=== PATIENT | female | born 1940 | race Caucasian/White ===

== ENCOUNTER → 2016-05-24 | Outpatient (CLI) | payer BC ==
[~2016-05-24] MED LIST: ACET-749 PO; FSMD/70 PO; HYDC25 PO; HYDR25TA4 PO; METO25TA3 PO; NAPR250T2 PO; PRLSR20 PO; SULF800T23 PO
[2016-05-24 12:43] LABS: BLOOD UREA NITROGEN 17 mg/dl (7-18); BUN/CREATININE RATIO 17.3 (10-20); CALCIUM 9.2 mg/dl (8.5-10.1); CARBON DIOXIDE 28 mmol/L (21-32); CHLORIDE 97 mmol/L (98-107); CHOLESTEROL 200 mg/dl (0-200); CREATININE 0.98 mg/dl (0.60-1.20); GLUCOSE 87 mg/dl (70-99); POTASSIUM 3.7 mmol/L (3.5-5.1); SODIUM 135 mmol/L (136-145)
[2016-05-24 12:47] LABS: CHOLESTEROL/HDL RATIO 1.9; HDL CHOLESTEROL 105 mg/dl; LDL CHOLESTEROL CALCULATED 83 mg/dl; TRIGLYCERIDES 61 mg/dl (0-150); VERY LOW DENSITY LIPOPROT CALC 12 mg/dl
--- NOTE | 2016-05-28 14:09 | CODING QUERY MEDICAL NECESSITY ---
SUPPORTING DIAGNOSIS NEEDED A supporting diagnosis is required for the test/procedure performed on this patient in order for us to be reimbursed by the patient's insurance. Please provide a supporting diagnosis for the following test/procedure listed below next to the test name along with your signature. *If there is no additional diagnosis for this patient that would support the following test/procedure please document that below next to the test/procedure. Test(s)/Procedure(s) that require a supporting diagnosis: * VITAMIN D 25-HYDROXY DIAGNOSIS: * DOS: 05/24/16 Provider Signature: Date: Thank you Kelsey Wei Health Information Management Once completed, please kindly fax back to [phone] For questions please call [phone]
== END | disposition home or self-care (01) ==
LOC: C.LABPVFM 07:34
PROVIDERS: ATTEND Nurse Practitioner
DX: M85.80 Other specified disorders of bone density and structure, unspecified site (principal); E78.5 Hyperlipidemia, unspecified; I10 Essential (primary) hypertension

== ENCOUNTER → 2016-07-01 | Outpatient (CLI) | payer BC | END | disposition home or self-care (01) | LOC: C.LABPVFM 09:30 | PROVIDERS: ATTEND Family Medicine | DX: R31.9 Hematuria, unspecified (principal) ==

== ENCOUNTER → 2016-07-15 | Outpatient (CLI) | payer BC ==
[2016-07-15 17:18] LABS: URINE APPEARANCE CLEAR (CLEAR); URINE BILIRUBIN NEG (NEG); URINE COLOR YELLOW; URINE EPITHELIAL CELL AUTO 0-5 /lpf (0-5); URINE NITRITE NEG (NEG); URINE PH 5.5 (4.5-7.5); UROBILINOGEN NEG (NEG); ZZUR CULT IF INDIC CLEAN CATCH NO
[2016-07-15 17:35] LABS: MANUAL MICROSCOPIC REQUIRED? NO; REVIEW REQ? NO
== END | disposition home or self-care (01) ==
LOC: C.LABPVFM 17:57
PROVIDERS: ATTEND Family Medicine
DX: R31.0 Gross hematuria (principal); N39.0 Urinary tract infection, site not specified

== ENCOUNTER 2016-09-23 17:34 | Emergency (ER) | payer BC ==
[~2016-09-23] VITALS: Ht 157.5 cm; Wt 58.0 kg
[~2016-09-23 17:34] MED LIST changes: -HYDR25TA4 PO; +NAPR1TAB48 PO; -NAPR250T2 PO; -PRLSR20 PO
[2016-09-23 17:43] VITALS: BP 182/87; PULSE 96; TEMP 37; O2SAT 100; Ht 157.5 cm; Wt 58.0 kg
[2016-09-23] MEDS ORDERED: PRLSR20 PO (18:14)
[2016-09-23] MEDS ORDERED: HYDR25TA4 PO (18:14)
[2016-09-23] MEDS ORDERED: NAPR1TAB48 PO (18:14)
--- NOTE | 2016-09-23 18:35 | DIAGNOSTIC IMAGING REPORT ---
RIGHT FINGER(S) MIN 2 VIEWS ROUTINE CLINICAL HISTORY: R 3rd finger injury Right trauma. Pain. COMPARISON: None. DISCUSSION: The right third finger is held in flexion at the level of the proximal interphalangeal joint. There is a potential subluxation at the joint. Small avulsion from the base of the proximal phalanx is considered old. Moderate degenerative change distal interphalangeal joint. There is no evidence for soft tissue swelling. IMPRESSION: The right third finger is held in flexion at the proximal interphalangeal joint. Mild localized soft tissue edema. Potential partial subluxation Electronically signed by: Christophe Seo M.D. 09/23/2016 6:33 PM Dictated Date/Time: 09/23/2016 6:32 PM
[2016-09-23] MEDS ORDERED: XYLOCAINE 1%/SOD BICARB 20 ML VIAL INFIL ONE (19:00)
--- NOTE | 2016-09-23 19:39 | EMERGENCY ROOM VISIT NOTE ---
ED Visit Note First contact with patient: 18:05 I have personally seen and evaluated the patient with the physician housing assistant. I agree with the diagnostic/management decisions and have personally been involved in these decisions and agree with the diagnosis.
--- NOTE | 2016-09-23 19:52 | EMERGENCY ROOM VISIT NOTE ---
History First contact with patient: 18:05 Chief Complaint: FINGER PAIN Stated Complaint: CANT STRAIGHTEN FINGERS IN R HAND History of Present Illness The patient is a 76 year old female who presents to the Emergency Room with complaints of a flexed right third finger that she cannot straighten. The patient reports that she was pulling weeds today and it locked. The patient reports that she has had similar episodes in the past, but has always been able to straighten her finger. The patient is [id number]. She denies any pain extending into the hand or wrist. She denies any paresthesias or numbness of the right third finger. She denies any pain. 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 (6) Osteoporosis Nos (7) Parox Atrial Tachycardia Surgical Problems: (1) Hip Joint Replacement Status Family History FH: cancer FH: hypertension FH: kidney disease Social History Smoking Status: Never Smoker Alcohol Use: none Marital Status: Occupation Status: retired Current/Historical Medications Scheduled Hydrochlorothiazide (Hctz), 12.5 MG PO DAILY Metoprolol Succ (Toprol Xl) (Toprol-Xl), 12.5 MG PO BID Naproxen (Naprosyn), 125 MG PO QPM Naproxen (Naprosyn), 250 MG PO QAM Omeprazole (Prilosec), 20 MG PO DAILY Allergies Coded Allergies: Indomethacin (Unverified Adverse Reaction, Intermediate, VOMITING HEADACHE , 09/23/16) Physical Exam Vital Signs Date Time Temp Pulse Resp B/P (MAP) Pulse Ox O2 Delivery O2 Flow Rate FiO2 09/23/16 17:43 37.0 96 18 182/87 100 Room Air Physical Exam CONSTITUTIONAL: Healthy and well nourished. Alert and oriented X 3 with positive affect. Patient does not appear in any acute distress. HEENT: Normocephalic, atraumatic. Pupils equal, round and reactive. NECK: Full active range of motion without discomfort. MUSCULOSKELETAL: Examination of the right hand shows a flexed deformity at the PIP joint. She has minimal focal tenderness over the A1 lauren. She has no significant tenderness over the collateral ligaments of the PIP joint. Capillary refill is less than 2 seconds. INTEGUMENTARY: No rash or other significant dermatologic conditions noted. NEUROLOGIC: No focal neurologic deficits noted. Right third fingertip is sensory intact. Medical Decision & Procedures ER Provider Diagnostic Interpretation: My interpretation of right third finger x-rays shows a flexion deformity at the PIP joint with possible partial subluxation. She also has an old avulsion fracture at the base of the proximal phalanx. No other fractures appreciated. Radiologist report is as follows: RIGHT FINGER(S) MIN 2 VIEWS ROUTINE CLINICAL HISTORY: R 3rd finger injury Right trauma. Pain. COMPARISON: None. DISCUSSION: The right third finger is held in flexion at the level of the proximal interphalangeal joint. There is a potential subluxation at the joint. Small avulsion from the base of the proximal phalanx is considered old. Moderate degenerative change distal interphalangeal joint. There is no evidence for soft tissue swelling. IMPRESSION: The right third finger is held in flexion at the proximal interphalangeal joint. Mild localized soft tissue edema. Potential partial subluxation Procedure PIP joint reduction/finger extension was performed under digital block anesthesia after receiving verbal consent from the patient. Digital block anesthesia was administered by our physician assistant art director student under my direct supervision. Using buffered 1% lidocaine without epinephrine, good digital block anesthesia was administered. After allowing adequate time for sedation, I initially attempted to extend the finger at the MCP joint with no obvious release at the A1 lauren. Then with gentle manipulation, the PIP joint was able to be extended. The palpable mass at the A1 lauren had resolved, and noticeable movement of the tendon was noted with extension of the PIP joint, therefore I suspect that this was a trigger finger. Passive range of motion of finger was intact. With the patient performing flexion and extension activities , she did have occasional catching. Collateral ligaments were also intact. A metal splint and erma taping were applied. ED Course Patient history and physical exam were performed. Nurse's notes were reviewed. The patient refused any analgesics. X-rays of the finger shows a flexion deformity of the PIP joint with possible partial subluxation. Reduction was performed under digital block anesthesia. The patient was encouraged to intermittently apply ice to the finger. A metal splint and erma taping were applied, and the patient was encouraged to follow-up with Dr. Flynn for further reevaluation and management. Tylenol as needed for any discomfort. The patient was happy with plan of care, and voiced understanding of all discharge instructions. The patient was also seen and examined by Dr. Mary, ED attending physician, who agrees with workup and plan of care. Medical Decision Impression Primary Impression: Trigger finger, right middle finger Departure Information Referrals Geovanna Hayes, [email or web address] (PCP) Patient Instructions [facility]
== END 2016-09-23 19:56 | disposition home or self-care (01) ==
LOC: C.EDB 17:36 → C.EDD 19:56
DX: M65.331 Trigger finger, right middle finger (principal); I12.9 Hypertensive chronic kidney disease with stage 1 through stage 4 chronic kidney disease, or unspecified chronic kidney disease; N18.3 Chronic kidney disease, stage 3 (moderate); E78.5 Hyperlipidemia, unspecified; M81.0 Age-related osteoporosis without current pathological fracture; Z96.649 Presence of unspecified artificial hip joint; Z80.9 Family history of malignant neoplasm, unspecified; Z82.49 Family history of ischemic heart disease and other diseases of the circulatory system; Z84.1 Family history of disorders of kidney and ureter; Z79.899 Other long term (current) drug therapy

== ENCOUNTER → 2017-05-22 | Outpatient (CLI) | payer BC ==
[~2017-05-22] MED LIST changes: -ACET-749 PO; -FSMD/70 PO; -HYDC25 PO; +HYDR25TA4 PO; +PRLSR20 PO; -SULF800T23 PO
[2017-05-22 13:34] LABS: BLOOD UREA NITROGEN 22 mg/dl (7-18); CALCIUM 9.4 mg/dl (8.5-10.1); CARBON DIOXIDE 27 mmol/L (21-32); CHOLESTEROL 225 mg/dl (0-200); CREATININE 0.99 mg/dl (0.60-1.20); GLUCOSE 92 mg/dl (70-99); POTASSIUM 3.9 mmol/L (3.5-5.1); SODIUM 133 mmol/L (136-145)
[2017-05-22 13:38] LABS: LDL CHOLESTEROL CALCULATED 118 mg/dl
== END | disposition home or self-care (01) ==
LOC: C.LABPVFM 08:26
PROVIDERS: ATTEND Nurse Practitioner
DX: I10 Essential (primary) hypertension (principal); E78.5 Hyperlipidemia, unspecified

== ENCOUNTER → 2017-11-06 | Outpatient (CLI) | payer BC ==
[2017-11-06 17:38] LABS: TRANSFERRIN 272 mg/dl (200-360)
== END | disposition home or self-care (01) ==
LOC: C.LABPVFM 14:17
PROVIDERS: ATTEND Nurse Practitioner Family
DX: D64.9 Anemia, unspecified (principal)

== ENCOUNTER 2023-12-29 12:30 | Inpatient (IN) ==
--- NOTE | 2023-12-29 13:05 | Emergency Department Note ---
History of Present Illness General Chief complaint: Hip Pain Stated complaint: R hip pain x 1 week Time Seen by Provider: 12/29/23 13:03 History of Present Illness This is an 83-year-old female that presents to the emergency department via EMS with complaints of "right groin/hip pain". The patient notes that she has been experiencing right hip pain for the past week that seemed to acutely worsened over the past few days. It is worse with ambulation/weightbearing to the right lower extremity and essentially 0 at rest. She does note recent UTI and is concerned that the UTI persists despite oral antibiotics in the outpatient setting. She denies any fevers, chills, nausea or vomiting. No abdominal pain. Patient notes that when she bears weight the pain in the right hip is in the right groin area and points to the inguinal crease, medial aspect. The patient denies any new back pain, but does state that she has had some mild back pain for quite some time. Patient denies any lower extremity weakness, bowel or bladder incontinence, numbness or tingling in genital region. Patient does note intermittent discomfort with urination. Home Medications Medication Instructions Recorded Confirmed Type calcium carbonate 600 mg-vitamin 1 tab PO BID 04/27/19 12/29/23 History D3 10 mcg (400 unit) tablet (Calcium 600 + D(3)) [id number]-kbwruudty-pfg C-Mn 500 3 cap PO BID 04/27/19 12/29/23 History mg-400 mg capsule (Glucosamine-Chondroitin Max St) stbnbjle-myx-tamnu acid 0.4 1 tab PO DAILY 04/27/19 12/29/23 History mg-lycopene 300 mcg-lutein 250 mcg tablet (Centrum Silver) cholecalciferol (vitamin D3) 25 25 mcg PO DAILY #30 caps 10/29/19 12/29/23 Rx mcg (1,000 unit) capsule gabapentin 300 mg capsule 300 mg PO BID #200 caps 06/26/23 12/29/23 Rx hydrochlorothiazide 25 mg tablet 12.5 mg (1/2 x 25 mg) PO QAM #60 09/23/23 12/29/23 Rx tabs metoprolol tartrate 25 mg tablet 12.5 mg (1/2 x 25 mg) PO BID #100 09/23/23 12/29/23 Rx tabs valsartan 160 mg tablet 160 mg PO DAILY #100 tabs 10/20/23 12/29/23 Rx Allergies Allergy/AdvReac Type Severity Reaction Status Date / Time indomethacin AdvReac Intermediate VOMITING Verified 12/29/23 16:52 HEADACHE Past Med/Surg History Problem List (Updated 12/30/23 @ 00:13 by Adonis Reno PA-C) Right groin pain (Acute) Hypercalcemia (Acute) UTI (urinary tract infection) Urinary symptom or sign Acute right hip pain Right leg weakness Bilateral leg pain Severe low back pain Low back pain Chronic kidney disease, stage III (moderate) (Chronic) Spinal stenosis of lumbar region (Acute) Carpal tunnel syndrome, right (Acute) Anemia (Chronic) Hyperlipidemia, unspecified (Chronic) pt elected to stop statin due to age Hypertension (Chronic) Osteoporosis, unspecified (Chronic) Paroxysmal atrial tachycardia (Acute) Medical History FH: bilateral hip replacements Blurred vision Acute chest wall pain Diverticulosis of colon Surgical History Hip joint replacement status Family History Mother Coronary heart disease Cardiac disorder Hypertension Kidney stones Osteoarthritis Myocardial infarction Father Coronary heart disease Hypertension Myocardial infarction Sister Cancer Liver cancer Brother Cancer Pancreatic cancer Aunt Breast cancer Denies family history of Ovarian cancer Prostate cancer Colorectal cancer Social History Smoking Status: Never smoker Hx Alcohol Use: No Hx Substance Use: No Preferred Language: Indonesian Communication Ability: Effective Data Recovery Planner Required: No Beliefs That Will Affect Care: None marital status: / Current Living Situation: Alone current occupational status: retired Other Information That Helps Us Care for You: No Feels Safe at Home: Yes Safety Concerns: Feels Safe At This Time caffeine: No Dental Care, Regularly: Yes Physical Activity Frequency: Does not Exercise Seatbelt Use: always Sunscreen Use: No Assistive Devices: Denture - Upper, Denture - Lower, Glasses and Walker Review of Systems A total of 10 systems reviewed and were otherwise negative Physical Exam Vital Signs Vital Signs - 24 hr 12/29/23 12:55 12/29/23 14:50 12/29/23 15:08 Temperature 37.1 C Temperature Source Oral Pulse Rate 78 76 Pulse Rate [Apical] 77 Pulse Rate from SpO2 Sensor Respiratory Rate 14 12 Blood Pressure 185/95 H Blood Pressure [Right Arm] 178/85 H Blood Pressure Mean 125 Blood Pressure Mean [Right Arm] 116 Pulse Oximetry 98 95 Oxygen Delivery Method Room Air Room Air Sepsis Recent Fever Within 48 Hours No Sepsis New/Unexplained Change in Mental Status N/A Sepsis Action Taken by Nursing No Action Required 12/29/23 15:30 12/29/23 15:30 12/29/23 15:57 Temperature Temperature Source Pulse Rate 76 79 Pulse Rate [Apical] Pulse Rate from SpO2 Sensor 76 79 Respiratory Rate 16 20 Blood Pressure 159/81 H Blood Pressure [Right Arm] Blood Pressure Mean 133 Blood Pressure Mean [Right Arm] Pulse Oximetry 99 98 Oxygen Delivery Method Room Air Room Air Sepsis Recent Fever Within 48 Hours Sepsis New/Unexplained Change in Mental Status Sepsis Action Taken by Nursing 12/29/23 16:00 12/29/23 16:06 12/29/23 16:42 Temperature Temperature Source Pulse Rate 78 84 Pulse Rate [Apical] Pulse Rate from SpO2 Sensor 79 84 Respiratory Rate 16 21 Blood Pressure 185/82 H Blood Pressure [Right Arm] Blood Pressure Mean 113 Blood Pressure Mean [Right Arm] Pulse Oximetry 99 98 Oxygen Delivery Method Room Air Room Air Sepsis Recent Fever Within 48 Hours Sepsis New/Unexplained Change in Mental Status Sepsis Action Taken by Nursing 12/29/23 17:32 Temperature Temperature Source Pulse Rate 83 Pulse Rate [Apical] Pulse Rate from SpO2 Sensor Respiratory Rate 29 H Blood Pressure 154/91 H Blood Pressure [Right Arm] Blood Pressure Mean 112 Blood Pressure Mean [Right Arm] Pulse Oximetry 94 Oxygen Delivery Method Room Air Sepsis Recent Fever Within 48 Hours Sepsis New/Unexplained Change in Mental Status Sepsis Action Taken by Nursing VITAL SIGNS - Vital signs and nursing notes were reviewed. Hypertensive on arrival, otherwise stable and afebrile. GENERAL -83-year-old female appearing her stated age who is in no acute distress. Communicates well with provider and answers questions appropriately. SKIN - Without rashes. No meningeal or petechial rash. No herpetic lesions HEAD - NC/AT. EYES - Sclera anicteric. MOUTH/OROPHARYNX - Without perioral cyanosis. B NECK - No nuchal rigidity. LUNGS - CTA CARDIAC - RRR ABDOMEN - Abdominal contour normal without pulsations or visible masses. BS normoactive all four quadrants. No tenderness, palpable masses, hepatosplenomegaly, or ascites noted. EXTREMITIES - No clubbing or peripheral cyanosis. The lower extremities are appropriately warm and well-perfused. No evidence of compartment syndrome. There is no lower extremity edema. There is no reproducible tenderness overlying the right hip area. Right greater trochanter region nontender. L- spine nontender. Right inguinal crease without palpable lymphadenopathy. No palpable cord. +5/5 strength noted in UE/LE bilaterally. NEUROLOGIC -sensory intact to light touch throughout the right lower extremity without deficit. PSYCH -alert, oriented and pleasant on exam. Course Administered Medications Gabapentin (Gabapentin 300 Mg Cap) 300 mg PO BID MARQUES Stop: 01/28/24 21:13 Last Admin: 12/29/23 23:01 Dose: 300 mg Documented By: ANABEL Metoprolol Tartrate (Metoprolol Tartrate 25 Mg Tab) 12.5 mg PO BID MARQUES Stop: 01/28/24 21:13 Last Admin: 12/29/23 23:01 Dose: 12.5 mg Documented By: ANABEL Discontinued Medications Sodium Chloride (Nss) 1,000 mls @ 999 mls/hr IV .Q1H1M MARQUES Stop: 12/29/23 16:15 Last Infusion: 12/29/23 18:11 Dose: Infused Documented By: Admin: 12/29/23 15:18 Dose: 999 mls/hr Documented By: VICK Ceftriaxone Sodium (Rocephin) 1,000 mg in 50 mls @ 100 mls/hr IV NOW STA Stop: 12/29/23 18:07 Last Infusion: 12/29/23 18:37 Dose: Infused Documented By: Admin: 12/29/23 18:07 Dose: 100 mls/hr Documented By: KARYN Sodium Chloride (Nss) 1,000 mls @ 999 mls/hr IV .Q1H1M ONE Stop: 12/29/23 19:36 Last Infusion: 12/29/23 19:58 Dose: Infused Documented By: Admin: 12/29/23 18:43 Dose: 999 mls/hr Documented By: VICK Medical Decision Making Laboratory Data 12/29/23 13:45 12/29/23 13:45 Lab Results 12/29/23 12/29/23 Range/Units 13:45 14:54 WBC 7.04 (4.8-10.8) K/ul RBC 3.35 L (4.20-5.40) M/uL Hgb 11.7 L (12.0-16.0) g/dl Hct 33.4 L (37.0-47.0) % MCV 99.7 (80.0-100.0) fL MCH 34.9 H (25.0-34.0) pg MCHC 35.0 (32.0-36.0) g/dL RDW Std Deviation 45.0 (36.4-46.3) fL RDW Coeff of Kristan 12.3 (11.5-14.5) % Plt Count 277 (130-400) K/uL MPV 10.2 (9.4-12.4) fL Immature Gran % (Auto) 0.3 % Neut % (Auto) 69.0 % Lymph % (Auto) 17.0 % Cole % (Auto) 10.5 % Eos % (Auto) 2.3 % Baso % (Auto) 0.9 % Neut # (Auto) 4.86 (1.40-6.50) K/uL Lymph # (Auto) 1.20 (1.20-3.40) K/uL Cole # (Auto) 0.74 H (0.11-0.59) K/uL Eos # (Auto) 0.16 (0.00-0.50) K/uL Baso # (Auto) 0.06 (0.00-0.20) K/uL Immature Gran # (Auto) 0.02 (0.01-0.20) K/uL Sodium 139 (136-145) mmol/L Potassium 3.7 (3.5-5.1) mmol/L Chloride 99 (98-107) mmol/L Carbon Dioxide 32 (21-32) mmol/L Anion Gap 8 (3-11) BUN 22 (6-23) mg/dl Creatinine 1.21 H (0.6-1.2) mg/dl Est Cr Clr Drug Dosing 28.4 ml/min Est GFR ( Amer) 47.2 ml/min Est GFR (Non-Af Amer) 40.8 ml/min BUN/Creatinine Ratio 18.2 (10-20) Glucose 95 (70-99(Fasting)) mg/dl Calcium 12.3 H* (8.6-10.3) mg/dl Phosphorus 2.9 (2.5-4.9) mg/dl Magnesium 1.4 L (1.7-2.4) mg/dl Total Bilirubin 0.5 (0.2-1.0) mg/dl AST 24 (13-39) U/L ALT 12 (7-52) U/L Alkaline Phosphatase 52 (34-104) U/L Total Protein 6.9 (6.0-8.3) gm/dl Albumin 4.0 (3.4-5.0) gm/dl Globulin 2.9 (2.5-4.0) gm/dl Albumin/Globulin Ratio 1.4 (0.9-2) 25-OH Vitamin D Total 94.9 (30-100) ng/ml PTH Intact 4.9 L (12.0-88.0) pg/ml Urine Color Yellow Urine Appearance Cloudy A (Clear) Urine pH 8.5 H (4.5-7.5) Ur Specific Dobbins 1.010 (1.000-1.030) Urine Protein Negative (Negative) Urine Glucose (UA) Negative (Negative) Urine Ketones Negative (Negative) Urine Blood Negative (Negative) Urine Nitrite Negative (Negative) Urine Bilirubin Negative (Negative) Urine Urobilinogen Negative (Negative) Ur Leukocyte Esterase 2+ H (Negative) Urine WBC (Auto) >50 H (0-5) /hpf Urine RBC (Auto) 0-2 (0-2) /hpf U Hyaline Cast (Auto) 3-5 H (0-2) /lpf U Epithel Cells (Auto) 0-2 (0-2) /hpf Urine Bacteria (Auto) None Seen (None Seen) Imaging Data Radiologist's Impression: Pelvis CT 12/29/23 13:16 CT pelvis wo con CLINICAL HISTORY: R medial groin pain w/ walking. TECHNIQUE: Helical axial images of the pelvis were obtained and displayed at 5 and 1 mm intervals. Automated dose lowering techniques and/or adjustment according to patient size were utilized for this exam. This exam was performed without intravenous contrast. CT DOSE: 805.67 mGy.cm COMPARISON: None available at the time of this dictation. FINDINGS: Bladder: Unremarkable. Reproductive organs: Unremarkable. Bowel: Unremarkable. Lymph nodes Pelvic: Unremarkable. Mesenteric: Unremarkable. Peritoneum: Normal Vessels: Atherosclerotic calcifications are seen. Abdominal wall: A tiny umbilical helical hernia is seen. Bones: Degenerative changes in the visualized spine. Bilateral hip arthroplasties are seen. Scoliotic curvature is noted. IMPRESSION: No acute abnormalities to explain right groin pain. Degenerative changes are seen in the spine and there are bilateral hip arthroplasties. ACT 112: Negative or not required by law. Electronically signed by: Twan Daniel M.D. 12/29/2023 3:36 PM Femur X-Ray 12/29/23 13:24 XR femur RT 2V routine CLINICAL HISTORY: Right groin pain. COMPARISON: Right hip radiographs August 22, 2009. CT of the abdomen and pelvis May 24, 2014. FINDINGS: There are stable postoperative findings following total right hip arthroplasty. There is no periprosthetic fracture or lucency. The hardware is intact. There are no right femoral fractures. No fractures are identified within visualized portions of the right hemipelvis. Moderate vascular calcification is incidentally noted. There is chondrocalcinosis within the medial and lateral menisci of the right knee. IMPRESSION: 1. Stable postoperative findings following total right hip arthroplasty. No periprosthetic fracture or lucency. 2. No right femoral fractures. ACT 112: Negative or not required by law. Electronically signed by: Cain Braxton M.D. 12/29/2023 2:38 PM MDM Narrative Patient was seen and evaluated as above in room D02b. Review was performed of triage nursing notes and vital signs. A thorough history and physical examination was performed. I did review today's outpatient visit. The patient at this time is well-appearing and nontoxic. She is resting comfortably in the examination bed. However, she notes that although there is essentially 0 pain at rest, when she attempts to ambulate/bear weight to the right leg pain is severe and significant in the right groin/right hip area. On my assessment it seems to be right medial groin rather than true right lateral hip area. There is no pain or tenderness to the right lateral hip. No new back pain. No neurovascular compromise. No reported trauma or injury. Also she notes she is experiencing continuation of urinary tract symptoms despite oral antibiotic therapy last month. Review of cultures did reveal pansensitive E. coli. She was on cefdinir. She has since finished the cefdinir. Options of care were discussed with the patient. IV access was established. Labs were drawn. X-ray of the right femur as well as CT scan of the pelvis was ordered to further evaluate the patient's areas of pain and discomfort. I did review the imaging. I also reviewed the formal radiology reports as dictated above. The right femur x-ray was essentially without fracture or dislocation. The CT scan of the pelvis also was without fracture. Labs reveal no leukocytosis. Minor anemia noted with hemoglobin of 11.7. There is mild elevation of creatinine compared to baseline now at 1.21. There is concerning hypercalcemia at 12.3. Urinalysis reveals concern for UTI noting patient's symptoms as well. Urine culture pending. While here the patient was medicated with IV ceftriaxone noted concern for UTI as well as IV fluids to hydrate as she does appear a bit dehydrated. Noting the patient's hypercalcemia I did add an EKG which was reviewed and reveals normal sinus rhythm at a rate of 76 bpm. QTc 389. QRS 68. No ST elevation. At this time I do believe that further evaluation and management is warranted in the inpatient setting. Case discussed with the hospitalist service. Patient amenable with this plan. Please refer to further documentation regarding her stay. GCS: 15 In the evaluation and treatment of this patient the following differential diagnoses were entertained: Hip fracture, pelvic fracture, UTI, pyelonephritis, abscess, shingles, DVT, electrolyte disturbance, among others. Impression & Plan Right groin pain, Hypercalcemia Discharge Plan Visit Data Chief Complaint: Hip Pain Stated Complaint: R hip pain x 1 week ED Provider: Yair Weinberg ED Midlevel Provider: Adonis Reno Discharge Problem: Right groin pain, Hypercalcemia Patient Disposition: Admitted As Inpatient Condition: Good Discharge Instructions Interventions: ED Discharge Assessment Last Done: 12/29/23 20:33
--- NOTE | 2023-12-29 13:23 | Emergency Department Note ---
ED Visit Note I was consulted by the Advanced Practice Provider. The case was discussed at length. I personally made/approved the management plan and take responsibility for the patient management. I performed a substantive portion of the visit. This includes the aspects of: [-I independently interpreted the following studies:] Right femur film shows the hardware to be in position. No fracture. Patient has a high calcium and low magnesium. She has some mild acute kidney injury. She appears to have a UTI. Hospitalization is indicated. The on-call hospitalist was consulted. .
[2023-12-29 14:04] LABS: Basophils # (auto) 0.06 K/uL (0.00-0.20); Basophils % (auto) 0.9 %; Eosinophils # (auto) 0.16 K/uL (0.00-0.50); Eosinophils % (auto) 2.3 %; Hematocrit (blood only) 33.4 % (37.0-47.0); Hemoglobin 11.7 g/dl (12.0-16.0); Immature Granulocytes # (auto) 0.02 K/uL (0.01-0.20); Immature Granulocytes % (auto) 0.3 %; Mean Corpuscular Hemoglobin 34.9 pg (25.0-34.0); Mean Corpuscular Volume 99.7 fL (80.0-100.0); Mean Platelet Volume 10.2 fL (9.4-12.4); Monocytes # (auto) 0.74 K/uL (0.11-0.59); Monocytes % (auto) 10.5 %; Neutrophils # (auto) 4.86 K/uL (1.40-6.50); Platelet Count 277 K/uL (130-400); RDW Coefficient of Variation 12.3 % (11.5-14.5); Red Blood Count 3.35 M/uL (4.20-5.40); White Blood Count 7.04 K/ul (4.8-10.8)
[2023-12-29 14:17] LABS: Appearance Urine Cloudy (Clear); Bacteria Urine Automated None Seen (None Seen); Bilirubin Urine Negative (Negative); Blood Urine Negative (Negative); Color Urine Yellow; Epithelial Cell Urine Auto 0-2 /hpf (0-2); Glucose Urine UA Negative (Negative); Ketones Urine Negative (Negative); Leukocyte Esterase Urine 2+ (Negative); Nitrite Urine Negative (Negative); Protein Urine Negative (Negative); RBC Urine Automated 0-2 /hpf (0-2); Urobilinogen Urine Negative (Negative); WBC Urine Automated >50 /hpf (0-5); pH Urine 8.5 (4.5-7.5)
[2023-12-29 14:28] LABS: Albumin Globulin Ratio 1.4 (0.9-2); BUN Creatinine Ratio 18.2 (10-20); Bilirubin,Total 0.5 mg/dl (0.2-1.0); Calcium 12.3 mg/dl (8.6-10.3); Creatinine Clr Calc Pharmacy 28.4 ml/min; Est GFR (African American) 47.2 ml/min; Est GFR (Non-African American) 40.8 ml/min; Globulin 2.9 gm/dl (2.5-4.0); Potassium 3.7 mmol/L (3.5-5.1); Total Protein 6.9 gm/dl (6.0-8.3)
--- NOTE | 2023-12-29 14:40 | XRay Report ---
XR femur RT 2V routine CLINICAL HISTORY: Right groin pain. COMPARISON: Right hip radiographs August 22, 2009. CT of the abdomen and pelvis May 24, 2014. FINDINGS: There are stable postoperative findings following total right hip arthroplasty. There is n o periprosthetic fracture or lucency. The hardware is intact. There are no right femoral fractures. N o fractures are identified within visualized portions of the right hemipelvis. Moderate vascular calc ification is incidentally noted. There is chondrocalcinosis within the medial and lateral menisci of the right knee. IMPRESSION: 1. Stable postoperative findings following total right hip arthroplasty. No periprosthetic fracture o r lucency. 2. No right femoral fractures. ACT 112: Negative or not required by law. Electronically signed by: Cain Braxton M.D. 12/29/2023 2:38 PM
[2023-12-29 15:14] LABS: Magnesium 1.4 mg/dl (1.7-2.4); Phosphorus 2.9 mg/dl (2.5-4.9)
[2023-12-29] MEDS: SODIUM CHLORIDE 0.9% 1,000 ML IV SCH (15:18)
--- NOTE | 2023-12-29 15:37 | CT Scan Report ---
CT pelvis wo con CLINICAL HISTORY: R medial groin pain w/ walking. TECHNIQUE: Helical axial images of the pelvis were obtained and displayed at 5 and 1 mm intervals. Au tomated dose lowering techniques and/or adjustment according to patient size were utilized for this e xam. This exam was performed without intravenous contrast. CT DOSE: 805.67 mGy.cm COMPARISON: None available at the time of this dictation. FINDINGS: Bladder: Unremarkable. Reproductive organs: Unremarkable. Bowel: Unremarkable. Lymph nodes Pelvic: Unremarkable. Mesenteric: Unremarkable. Peritoneum: Normal Vessels: Atherosclerotic calcifications are seen. Abdominal wall: A tiny umbilical helical hernia is seen. Bones: Degenerative changes in the visualized spine. Bilateral hip arthroplasties are seen. Scoliotic curvature is noted. IMPRESSION: No acute abnormalities to explain right groin pain. Degenerative changes are seen in the spine and th ere are bilateral hip arthroplasties. ACT 112: Negative or not required by law. Electronically signed by: Twan Daniel M.D. 12/29/2023 3:36 PM
--- NOTE | 2023-12-29 16:00 | Electrocardiogram Report ---
Test Reason : Blood Pressure : */* mmHG Vent. Rate : 76 BPM Atrial Rate : 76 BPM P-R Int : 204 ms QRS Dur : 68 ms QT Int : 346 ms P-R-T Axes : 1 -6 -43 degrees QTcB Int : 389 ms Normal sinus rhythm Minimal voltage criteria for LVH, may be normal variant Inferior infarct , age undetermined Abnormal ECG When compared with ECG of 18-Nov-2009 13:05, Inferior infarct now present Confirmed by Jeremy Moreau ([id number]) on 12/29/2023 3:59:39 PM Referred By: REFERRED SELF Confirmed By: Jeremy Moreau
[2023-12-29] MEDS: cefTRIAXone SODIUM 1,000 MG/50 ML BAG IV STA (18:07)
--- NOTE | 2023-12-29 18:10 | History & Physical Report ---
Date of Service December 29, 2023 Assessment & Plan (1) Hypercalcemia: Plan: Suspect due to dehydration, HCTZ, calcium supplementation Hold hydrochlorothiazide and calcium supplementation IV fluids overnight Repeat calcium with ionized calcium in a.m., further workup only required if it does not normalize (2) UTI (urinary tract infection): Plan: Suspect duration of cefdinir just was too short rather than the incorrect antibiotic as she initially improved Ceftriaxone 1g IV daily Follow up urine cultures (3) Right groin pain: Plan: Unable to reproduce on exam. Appears to have resolved. Suspect her lower abdominal pain intermittently was related to a UTI. If recurs consider radiculopathy given prior problems on left side. (4) Hypertension: Plan: Continue metoprolol and valsartan Monitor for increasing blood pressure with holding hydrochlorothiazide Plan VTE prophylaxis - low risk Diet - regular Disposition - [facility] Admission and Anticipated Discharge Date Admission Date: December 29, 2023 History of Present Illness Chief Complaint: Right groin pain Primary Care Provider: REYNOLD Clemente Mariela Luna is an 83 year old female who presents to the ER on advice of her PCP with groin pain. She reports going to her PCP for a wellness visit today but on exam her PCP pressed on her right groin causing severe pain. She did not go to her PCP for this pain and currently does not have this pain. However given the severity of the pain and concern for her total hip arthroplasty she was recommended to go to the ER. This is on a background of a UTI diagnosed December 12 which grew pansensitive E. coli (she had symptoms for 2 weeks prior to initial diagnosis). She was treated with a 7-day course of cefdinir and initially improved. However, after finishing antibiotics she developed intermittent lower abdominal pain with increased sleepiness and confusion starting 3 days ago. She reports not eating drinking well due to poor appetite for the last few days. In the ER she was noted to have hypercalcemia. She denies any muscle weakness, abdominal pain, constipation, nausea or vomiting. She takes calcium supplements and hydrochlorothiazide. Allergies Allergy/AdvReac Type Severity Reaction Status Date / Time indomethacin AdvReac Intermediate VOMITING Verified 12/29/23 16:52 HEADACHE Home Medications Medication Instructions Recorded Confirmed Type calcium carbonate 600 mg-vitamin 1 tab PO BID 04/27/19 12/29/23 History D3 10 mcg (400 unit) tablet (Calcium 600 + D(3)) [id number]-qyvtcmpqp-ypf C-Mn 500 3 cap PO BID 04/27/19 12/29/23 History mg-400 mg capsule (Glucosamine-Chondroitin Max St) sdhydlzn-fqc-wliuw acid 0.4 1 tab PO DAILY 04/27/19 12/29/23 History mg-lycopene 300 mcg-lutein 250 mcg tablet (Centrum Silver) cholecalciferol (vitamin D3) 25 25 mcg PO DAILY #30 caps 10/29/19 12/29/23 Rx mcg (1,000 unit) capsule gabapentin 300 mg capsule 300 mg PO BID #200 caps 06/26/23 12/29/23 Rx hydrochlorothiazide 25 mg tablet 12.5 mg (1/2 x 25 mg) PO QAM #60 09/23/23 12/29/23 Rx tabs metoprolol tartrate 25 mg tablet 12.5 mg (1/2 x 25 mg) PO BID #100 09/23/23 12/29/23 Rx tabs valsartan 160 mg tablet 160 mg PO DAILY #100 tabs 10/20/23 12/29/23 Rx Past Med/Surg History Problem List (Updated 12/30/23 @ 00:13 by Adonis Reno PA-C) Right groin pain (Acute) Hypercalcemia (Acute) UTI (urinary tract infection) Urinary symptom or sign Acute right hip pain Right leg weakness Bilateral leg pain Severe low back pain Low back pain Chronic kidney disease, stage III (moderate) (Chronic) Spinal stenosis of lumbar region (Acute) Carpal tunnel syndrome, right (Acute) Anemia (Chronic) Hyperlipidemia, unspecified (Chronic) pt elected to stop statin due to age Hypertension (Chronic) Osteoporosis, unspecified (Chronic) Paroxysmal atrial tachycardia (Acute) Medical History FH: bilateral hip replacements Blurred vision Acute chest wall pain Diverticulosis of colon Surgical History Hip joint replacement status Family History Mother Coronary heart disease Cardiac disorder Hypertension Kidney stones Osteoarthritis Myocardial infarction Father Coronary heart disease Hypertension Myocardial infarction Sister Cancer Liver cancer Brother Cancer Pancreatic cancer Aunt Breast cancer Denies family history of Ovarian cancer Prostate cancer Colorectal cancer Social History Smoking Status: Never smoker Hx Alcohol Use: No Hx Substance Use: No Preferred Language: Indian Communication Ability: Effective Hourly Sign Language Interpreter Required: No Beliefs That Will Affect Care: None marital status: / Current Living Situation: Alone current occupational status: retired Other Information That Helps Us Care for You: No Feels Safe at Home: Yes Safety Concerns: Feels Safe At This Time caffeine: No Dental Care, Regularly: Yes Physical Activity Frequency: Does not Exercise Seatbelt Use: always Sunscreen Use: No Assistive Devices: Denture - Upper, Denture - Lower, Glasses and Walker Review of Systems Review of Systems: All systems reviewed & are unremarkable except as noted in HPI & below Physical Exam Constitutional: WD/WN, vitals as above Eyes: + anicteric sclerae; normal pupil size ENMT: Mouth: oral mucous membranes not dry Respiratory: normal respiratory effort, lungs clear to auscultation Cardiovascular: RRR, no murmur, no edema Gastrointestinal (Abdomen): normal bowel sounds, soft, nontender, no hepatosplenomegaly 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 Groin examined where she noticed pain in her PCP office. No skin changes. Unable to reproduce pain on palpation. Skin: no rashes, warm and dry Neurologic: moves all extremities and awake; not confused Psychiatric: A+Ox3, euthymic affect Results & Data Results & Data Vital Signs (Past 12 Hours) Vital Signs Temp Pulse Pulse Resp BP BP Pulse Ox 12/29/23 17:32 83 29 H 154/91 H 94 12/29/23 16:42 84 21 98 12/29/23 16:06 78 16 99 12/29/23 16:00 185/82 H 12/29/23 15:57 79 20 98 12/29/23 15:30 76 16 99 12/29/23 15:30 159/81 H 12/29/23 15:08 76 12/29/23 14:50 77 12 178/85 H 95 12/29/23 12:55 37.1 C 78 14 185/95 H 98 O2 Del Method 12/29/23 17:32 Room Air 12/29/23 16:42 Room Air 12/29/23 16:06 Room Air 12/29/23 16:00 12/29/23 15:57 Room Air 12/29/23 15:30 Room Air 12/29/23 15:30 12/29/23 15:08 12/29/23 14:50 Room Air 12/29/23 12:55 Room Air Laboratory Results Abnormal lab results 12/29/23 12/29/23 Range/Units 13:45 14:54 RBC 3.35 L (4.20-5.40) M/uL Hgb 11.7 L (12.0-16.0) g/dl Hct 33.4 L (37.0-47.0) % MCH 34.9 H (25.0-34.0) pg Isabela # (Auto) 0.74 H (0.11-0.59) K/uL Creatinine 1.21 H (0.6-1.2) mg/dl Calcium 12.3 H* (8.6-10.3) mg/dl Magnesium 1.4 L (1.7-2.4) mg/dl PTH Intact 4.9 L (12.0-88.0) pg/ml Urine Appearance Cloudy A (Clear) Urine pH 8.5 H (4.5-7.5) Ur Leukocyte Esterase 2+ H (Negative) Urine WBC (Auto) >50 H (0-5) /hpf U Hyaline Cast (Auto) 3-5 H (0-2) /lpf Diagnostic Findings XR femur RT 2V routine CLINICAL HISTORY: Right groin pain. COMPARISON: Right hip radiographs August 22, 2009. CT of the abdomen and pelvis May 24, 2014. FINDINGS: There are stable postoperative findings following total right hip arthroplasty. There is no periprosthetic fracture or lucency. The hardware is intact. There are no right femoral fractures. No fractures are identified within visualized portions of the right hemipelvis. Moderate vascular calcification is incidentally noted. There is chondrocalcinosis within the medial and lateral menisci of the right knee. IMPRESSION: 1. Stable postoperative findings following total right hip arthroplasty. No periprosthetic fracture or lucency. 2. No right femoral fractures. CT pelvis wo con CLINICAL HISTORY: R medial groin pain w/ walking. TECHNIQUE: Helical axial images of the pelvis were obtained and displayed at 5 and 1 mm intervals. Automated dose lowering techniques and/or adjustment according to patient size were utilized for this exam. This exam was performed without intravenous contrast. CT DOSE: 805.67 mGy.cm COMPARISON: None available at the time of this dictation. FINDINGS: Bladder: Unremarkable. Reproductive organs: Unremarkable. Bowel: Unremarkable. Lymph nodes Pelvic: Unremarkable. Mesenteric: Unremarkable. Peritoneum: Normal Vessels: Atherosclerotic calcifications are seen. Abdominal wall: A tiny umbilical helical hernia is seen. Bones: Degenerative changes in the visualized spine. Bilateral hip arthroplasties are seen. Scoliotic curvature is noted. IMPRESSION: No acute abnormalities to explain right groin pain. Degenerative changes are seen in the spine and there are bilateral hip arthroplasties. Medications Administered ER medications given: Normal saline 1 L bolus Ceftriaxone 1 g IV ECG Rate (beats per minute): 76 Rhythm: normal sinus Findings: + other (Inferior Q waves present) Comparison ECG Date: from (18 November 2009) Change: the following changes noted (inferior q waves are new) Code Status & VTE Plan Code Status DNR/DNI VTE Prophylaxis Plan VTE Prophylaxis will be ordered: No Reason for no VTE drug order: Treatment not indicated PG Care Time/CCT Total # of Minutes Spent Total Time Spent: 70 Total Time Spent with Patient: Total time spent is greater than 50% in coordination of care (as documented) at patient's floor/unit and/or counseling patient: Coding Level of Care Code 64038 INT INP/OBS CARE 3/75MIN Diagnoses Hypercalcemia E83.52 UTI (urinary tract infection) N39.0 Right groin pain R10.31 Primary hypertension I10 Hypertension type: primary hypertension (4) Hypertension Hypertension type: primary hypertension Qualified Code(s): I10 - Essential (primary) hypertension
[2023-12-29] MEDS: SODIUM CHLORIDE 0.9% 1,000 ML IV ONE (18:43)
[2023-12-29 21:21] VITALS: RESP 18
[2023-12-29] MEDS: METOPROLOL TARTRATE 25 MG TAB PO SCH (23:01)
[2023-12-29] MEDS: GABAPENTIN 300 MG CAP PO SCH (23:01)
[2023-12-30] MEDS ORDERED: SODIUM CHLORIDE 0.9% 1,000 ML IV SCH (00:45)
[2023-12-30] MEDS: PLASMA-LYTE A 1,000 ML IV SCH (01:29)
--- NOTE | 2023-12-30 06:57 | Hospitalist Progress Note ---
Date of Service December 30, 2023 Assessment & Plan (1) Hypercalcemia: Plan: Suspect due to dehydration, HCTZ, calcium supplementation resolved after IVF, Holding hydrochlorothiazide and calcium supplementation stop IVF pth is suppressed, vitamin D is in normal range (2) UTI (urinary tract infection): Plan: Suspect duration of cefdinir just was too short rather than the incorrect antibiotic as she initially improved Ceftriaxone 1g IV daily Follow up urine cultures, preliminary gram negative (3) Right groin pain: Plan: Reproducable on exam PT feels that her lower abdominal pain intermittently was related to a UTI. On Ct there is a screw from acetabular cup that protrudes to the iliopsoas tendon, this is similar in position to previous (4) Hypertension: Plan: Continue metoprolol and valsartan Monitor for increasing blood pressure with holding hydrochlorothiazide replete potassium and magnesium Plan VTE prophylaxis - low risk Admission and Anticipated Discharge Date Admission Date: December 29, 2023 Subjective Pt once again has recurrence of inguinal pain, this limits her ability to walk and bear weight Physical Exam Physical Exam: pt has pain along the right inguinal ligament, no hernia but tender no mass no lymphadenopathy cardiac is regular lungs are clear Results & Data Results & Data Vital Signs (Past 12 Hours) Vital Signs Temp Pulse Pulse Resp BP BP BP 12/29/23 23:16 130/65 12/29/23 21:32 12/29/23 21:20 98.1 F 88 18 197/70 H 12/29/23 19:07 79 16 168/89 H 12/29/23 19:00 79 16 168/85 H 12/29/23 19:00 82 Pulse Ox O2 Del Method 12/29/23 23:16 12/29/23 21:32 Room Air 12/29/23 21:20 96 Room Air 12/29/23 19:07 96 Room Air 12/29/23 19:00 12/29/23 19:00 Laboratory Results review cbc review chemistry PG Care Time/CCT Total # of Minutes Spent Total Time Spent with Patient: Total time spent is greater than 50% in coordination of care (as documented) at patient's floor/unit and/or counseling patient: Coding Level of Care Code 80521 SUB INP/OBS CARE 3/50MIN Diagnoses Hypercalcemia E83.52 UTI (urinary tract infection) N39.0 Right groin pain R10.31 Primary hypertension I10 Hypertension type: primary hypertension (4) Hypertension Hypertension type: primary hypertension Qualified Code(s): I10 - Essential (primary) hypertension
[2023-12-30] MEDS: VALSARTAN 80 MG TAB PO SCH (08:43)
[2023-12-30 10:26] LABS: BUN Creatinine Ratio 17.4 (10-20); Calcium 9.5 mg/dl (8.6-10.3); Est GFR (African American) 53.6 ml/min; Est GFR (Non-African American) 46.3 ml/min; Magnesium 1.3 mg/dl (1.7-2.4); Potassium 3.3 mmol/L (3.5-5.1)
[2023-12-30] MEDS: KETOROLAC TROMETHAMINE 15 MG/ML VIAL IV ONE (11:54)
[2023-12-30] MEDS: POTASSIUM CHLORIDE CRTAB 20 MEQ TABCR PO STA (11:54)
[2023-12-30] MEDS: MAGNESIUM SULFATE / D5W 1 GM/100 ML BAG IV SCH (12:20)
[2023-12-30] MEDS: cefTRIAXone SODIUM 1,000 MG/50 ML BAG IV SCH (17:15)
[2023-12-31 08:29] VITALS: BP 163/76; PULSE 74; TEMP 98.6; O2SAT 100
--- NOTE | 2023-12-31 09:54 | Hospitalist Progress Note ---
Date of Service December 31, 2023 Assessment & Plan (1) Hypercalcemia: Plan: Suspect due to dehydration, HCTZ, calcium supplementation resolved after IVF, Holding hydrochlorothiazide and calcium supplementation stop IVF pth is suppressed, vitamin D is in normal range (2) UTI (urinary tract infection): Plan: Suspect duration of cefdinir just was too short rather than the incorrect antibiotic as she initially improved Ceftriaxone 1g IV daily Follow up urine cultures, preliminary gram negative (3) Right groin pain: Plan: Reproducable on exam PT feels that her lower abdominal pain intermittently was related to a UTI. On Ct there is a screw from acetabular cup that protrudes to the iliopsoas tendon, this is similar in position to previous (4) Hypertension: Plan: Continue metoprolol and valsartan Monitor for increasing blood pressure with holding hydrochlorothiazide replete potassium and magnesium Plan VTE prophylaxis - low risk Admission and Anticipated Discharge Date Admission Date: December 30, 2023 Results & Data Results & Data Vital Signs (Past 12 Hours) Vital Signs Temp Pulse Resp BP Pulse Ox O2 Del Method 12/31/23 08:28 98.6 F 74 18 163/76 H 100 Room Air PG Care Time/CCT Total # of Minutes Spent Total Time Spent with Patient: Total time spent is greater than 50% in coordination of care (as documented) at patient's floor/unit and/or counseling patient: Coding Diagnoses Hypercalcemia E83.52 UTI (urinary tract infection) N39.0 Right groin pain R10.31 Primary hypertension I10 Hypertension type: primary hypertension (4) Hypertension Hypertension type: primary hypertension Qualified Code(s): I10 - Essential (primary) hypertension
[2023-12-31 10:21] LABS: Hematocrit (blood only) 30.8 % (37.0-47.0); Mean Corpuscular Hemoglobin 35.5 pg (25.0-34.0); Mean Corpuscular Hgb Conc 35.7 g/dL (32.0-36.0); Mean Corpuscular Volume 99.4 fL (80.0-100.0); Platelet Count 249 K/uL (130-400); RDW Coefficient of Variation 12.7 % (11.5-14.5); RDW Standard Deviation 45.5 fL (36.4-46.3); White Blood Count 6.44 K/ul (4.8-10.8)
[2023-12-31 10:54] LABS: BUN Creatinine Ratio 16.1 (10-20); Creatinine Clr Calc Pharmacy 36.3 ml/min; Potassium 4.1 mmol/L (3.5-5.1)
[2023-12-31] MEDS ORDERED: traMADol HCL 50 MG TABLET PO PRN (11:09)
[2023-12-31] MEDS: POLYETHYLENE (MIRALAX) 17 GM PACK PO ONE (11:21)
[2023-12-31] MEDS: LIDOCAINE 5% 1 PATCH TD STA (12:57)
--- NOTE | 2023-12-31 17:07 | Discharge Summary ---
Discharge Summary Date of Service December 31, 2023 Principal Dx & Hospital Course #1 = Principal Diagnosis (1) Hypercalcemia: Suspect due to dehydration, HCTZ, calcium supplementation resolved after IVF, Holding hydrochlorothiazide and calcium supplementation stop IVF pth is suppressed, vitamin D is in normal range stopping hydrochlorothiazide calcium supplementation at time of discharge recommending repeat follow-up with outpatient provider (2) UTI (urinary tract infection): Suspect duration of cefdinir just was too short rather than the incorrect antibiotic as she initially improved Ceftriaxone 1g IV daily since the patient has pansensitive E. coli she will be home on amoxicillin 1000 twice daily for 7 days (3) Right groin pain: Reproducible on exam PT feels that her lower abdominal pain intermittently was related to a UTI. On Ct there is a screw from acetabular cup that protrudes to the iliopsoas tendon, this is similar in position to previous will have orthopedic follow-up and consideration of nonsurgical orthopedic pain injection if deemed to be appropriate by Dr. Flynn at follow-up (4) Hypertension: Continue metoprolol and valsartan Monitor for increasing blood pressure with holding hydrochlorothiazide repleted potassium and magnesium Notes For Next Care Provider Likely need surveillance of her calcium and then consideration of the amount to restart on vitamin D. Patient's pain seems to be along the inguinal ligament may benefit from evaluation by an orthopedic sports medicine physician for possible injection. Patient has appoint with Dr. Flynn first to evaluate her prosthesis [place] [address] Colon Medication Changes From Visit Attending pain control with Tylenol tramadol and topical Lidoderm patch Admission HPI Per Admitting Provider Mariela Luna is an 83 year old female who presents to the ER on advice of her PCP with groin pain. She reports going to her PCP for a wellness visit today but on exam her PCP pressed on her right groin causing severe pain. She did not go to her PCP for this pain and currently does not have this pain. However given the severity of the pain and concern for her total hip arthroplasty she was recommended to go to the ER. This is on a background of a UTI diagnosed December 12 which grew pansensitive E. coli (she had symptoms for 2 weeks prior to initial diagnosis). She was treated with a 7-day course of cefdinir and initially improved. However, after finishing antibiotics she developed intermittent lower abdominal pain with increased sleepiness and confusion starting 3 days ago. She reports not eating drinking well due to poor appetite for the last few days. In the ER she was noted to have hypercalcemia. She denies any muscle weakness, abdominal pain, constipation, nausea or vomiting. She takes calcium supplements and hydrochlorothiazide. Discharge Exam Awake alert appropriate still having right-sided pain. The patient and her son wish to go home today offered her to stay additional day but she request to go home today she is agreeable to taking some tramadol and topical Lidoderm patch Discharge Plan Discharge Items Patient Disposition: Home - Self-Care Reason For Visit: HYPERCALCEMIA Discharge Diagnosis: medication induced high calcium right inguinal pain E coli uti poa Condition on Discharge: Good Activity: Resume your previous activity Non-emergency contact: Primary Care Provider and Specialist Call non-emergency contact if: your symptoms worsen Follow-up/Referrals: Geovanna Hayes CRNP [Primary Care Provider] - 01/09/24 10:30 am Karina Munguia MD [Physician] - 03/16/24 11:20 am Juan Flynn MD [Physician] - 03/11/24 2:20 pm Diet: Regular Addtl Attending Provider Instructions: please rest, consider getting over the counter Lidocaine patches to try to help your groin pain take Tylenol three times a day for 3 days to try to help your groin pain please follow up with DR Flynn and then consider seeing Dr Hernandez if he cannot help your groin pain complete all of your antibiotics Pending Studies at Discharge: No Stand-Alone Forms: My [facility], Smoking Cessation Medications and DC Order Prescriptions: New tramadol 50 mg Tablet 50 mg PO Q4H PRN (Reason: pain) Qty: 20 0RF amoxicillin 500 mg capsule 1,000 mg PO BID 7 Days Qty: 28 0RF Continued metoprolol tartrate 25 mg tablet 12.5 mg PO BID Qty: 100 3RF valsartan 160 mg tablet 160 mg PO DAILY Qty: 100 3RF gabapentin 300 mg capsule 300 mg PO BID Qty: 200 3RF Centrum Silver 0.4-300-250 mg-mcg-mcg Tablet 1 tab PO DAILY Rx Instructions: Unable to verify OTC meds at this date/time. Discontinued cholecalciferol (vitamin D3) 25 mcg (1,000 unit) capsule 25 mcg PO DAILY Qty: 30 5RF Rx Instructions: Unable to verify OTC meds at this date/time. hydrochlorothiazide 25 mg tablet 12.5 mg PO QAM Qty: 60 3RF qflykjnlhwx-sxazglzrz-aip C-Mn [Glucosamine-Chondroitin Max St] 500-400 mg Capsule 3 cap PO BID Rx Instructions: Unable to verify OTC meds at this date/time. calcium carbonate-vitamin D3 [Calcium 600 + D(3)] 600 mg(1,500mg) -400 unit Tablet 1 tab PO BID Rx Instructions: Unable to verify OTC meds at this date/time. Discharge Orders: Discharge Order (Routine); Ordered 12/31/23 Ordered By: Ky Chawla Admission Data Admit Date/Time: 12/30/23 13:58 Attending Provider: Ky Chawla Admit Provider: Eliezer Mc Primary Care Provider: Geovanna Hayes Other Providers: Eliezer Mc Other Interventions: Discharge Summary Assessment (RN) Last Done: 12/31/23 14:58 Hospital Stay Data Consultations 12/29/23 15:15 ED Decision to Admit Stat Diagnostic Imagining Performed 12/29/23 13:16 CT pelvis wo con Stat Pending Results Patient Have Any Pending Studies at Discharge: No Discharge Instructions Given to Patient (Per Discharging Provider) please rest, consider getting over the counter Lidocaine patches to try to help your groin pain take Tylenol three times a day for 3 days to try to help your groin pain please follow up with DR Flynn and then consider seeing Dr Hernandez if he cannot help your groin pain complete all of your antibiotics Total Time Total Time Spent Total Time Spent (In Minutes): It required greater than 30 minutes to prepare this patient for discharge. Coding Level of Care Code 28072 INP/OBS DISCH >30 MIN Diagnoses Hypercalcemia E83.52 UTI (urinary tract infection) N39.0 Right groin pain R10.31 Primary hypertension I10 Hypertension type: primary hypertension
[2024-01-01] MEDS ORDERED: LIDOCAINE 5% 1 PATCH TD SCH (09:00)
== END 2023-12-31 16:12 | disposition home or self-care (01) | DRG 641 ==
LOC: 3N 12:30 → ED 12:30 → SUATTDRO 17:40 → 3N 20:33
DX: Z82.49 Family history of ischemic heart disease and other diseases of the circulatory system; N39.0 Urinary tract infection, site not specified; B96.20 Unspecified Escherichia coli [E. coli] as the cause of diseases classified elsewhere; R10.31 Right lower quadrant pain; Z88.6 Allergy status to analgesic agent; I10 Essential (primary) hypertension; Z66 Do not resuscitate; E86.0 Dehydration; T50.2X5A Adverse effect of carbonic-anhydrase inhibitors, benzothiadiazides and other diuretics, initial encounter; Z96.643 Presence of artificial hip joint, bilateral; Z79.899 Other long term (current) drug therapy; E83.52 Hypercalcemia; T50.3X5A Adverse effect of electrolytic, caloric and water-balance agents, initial encounter